=== PATIENT | male | born 1950 | race Caucasian/White ===

== ENCOUNTER → 2016-04-22 | Day surgery (SDC) | payer OTHER, MEDICARE ==
--- NOTE | 2016-04-22 13:02 | Operative Report ---
Operative/Inv Procedure Report Surgery Date: 04/22/16 Name of Procedure: Left knee arthroscopic partial medial meniscectomy Pre-Operative Diagnosis: Left medial meniscal tear, question of a left lateral meniscal tear Post-Operative Diagnosis: Left knee medial meniscal tear Estimated Blood Loss: abimael Surgeon/Pediatric Pathologist: GABBY GARCIA,CHLOE Anesthesia: laryngeal mask airway Specimens: None Complications: None Condition: Stable Operative Indication: Patient is a 65-year-old man developed knee pain and mechanical symptoms consistent with a meniscal etiology. Due to ongoing symptoms, patient and further evaluation with MRI. The MRI revealed findings consistent with a medial meniscal tear and a possible degenerative lateral meniscal tear. Due to these ongoing symptoms and interference with activities, he wished to proceed with surgical management. Arthroscopic surgery was proposed. Risks, benefits and expectations of the surgical procedure were discussed including but not limited to persistent knee pain, need for subsequent surgery, infection, anesthesia risks. Operative/Procedure Note Note: Patient was brought to the operating room and transferred to the operating table. Once under appropriate anesthesia the left lower extremity was prepped and draped in standard fashion. Preoperative IV antibiotics were given prophylactically. A standard infrapatellar lateral portal site was established. Scope was inserted. Patellofemoral was visualized. Was some mild degenerative changes along the trochlear aspect of the toe femoral articulation. No loose articular cartilage. Copious irrigations were patellar pouch followed. There was some synovial hypertrophy and this suprapatellar pouch. There was a fairly large and thickened medial plica and some underlying chondral changes. This would be addressed later on the case. I dropped into the medial compartment. The medial meniscus was found to be intact from its anterior horn to his body. There was a complex tear between the body junction and the posterior horn. I established a medial infrapatellar portal site under direct vision and then I was able to do a partial medial meniscectomy. There was some mild degenerative changes along the medial compartment. I entered the notch. The ACL was found to be intact. I placed leg into figure 4 position I was able to evaluate the lateral meniscus from its posterior to its anterior horn. There was some mild degenerative fraying which I debrided with a shaver. I then entered the lateral gutter. No evidence of loose bodies. I went up to the patellofemoral compartment copiously irrigated the knee and then this was followed by resection of the medial plica which was thickened and was probably responsible for the chondral changes along the medial femoral condyle. The cautery was used to minimize the risk of hemarthrosis after excising the plica area copious irrigation followed. I then removed all fluid and instruments from the knee. The portal sites were closed with interrupted nylon suture. Appropriate dressings were applied and patient was awakened and taken the recovery room in good condition. No intraoperative Locations blood loss was minimal. Discharge Disposition: PACU
== END ==
LOC: STS 03-18 07:00
DX: M23.222 Derangement of posterior horn of medial meniscus due to old tear or injury, left knee (principal); E78.00 Pure hypercholesterolemia, unspecified
CPT/HCPCS: J0131; J0690; J2250; J2405